=== PATIENT | female | born 1995 | race Hispanic/Latino ===

== ENCOUNTER 2019-08-25 21:42 | Emergency (ER) | payer SELFPAY ==
[2019-08-25] MEDS ORDERED: ACETAMINOPHEN 500 MG TAB ONE (22:22)
[2019-08-25] MEDS ORDERED: NA CHLORIDE 0.9% 1,000 ML ONE (22:22)
[2019-08-25] MEDS ORDERED: ONDANSETRON 4 MG/2 ML VIAL ONE (22:22)
[2019-08-25 22:58] LABS: Absolute Lymphocytes (CBC) 0.5 K/uL (0.7-4.9); Basophils % 0.1 % (0-1.3); Hematocrit 38.1 % (36.0-45.0); Lymphocytes % 7.1 % (15.3-44.8); MPV 11.5 fL (7.6-11.3); RBC Red Blood Cell Count 4.34 M/uL (3.86-4.86)
[2019-08-25 23:10] LABS: ALT/SGPT 16 U/L (12-78); AST/SGOT 13 U/L (15-37); Albumin 4.1 g/dL (3.4-5.0); Alkaline Phosphatase 65 U/L (45-117); BUN Blood Urea Nitrogen 16 mg/dL (7-18); Bicarbonate 29 mmol/L (21-32); Bilirubin Direct 0.2 mg/dL (0-0.2); Bilirubin Total 0.6 mg/dL (0.2-1.0); Glucose Level 99 mg/dL (74-106); Lipase 84 U/L (73-393); Potassium 3.3 mmol/L (3.5-5.1); Protein, Total 7.9 g/dL (6.4-8.2); Sodium Level 138 mmol/L (136-145)
[2019-08-25] MEDS ORDERED: MORPHINE 2 MG/ML SYR ONE (23:58)
[2019-08-26] MEDS ORDERED: NA CHLORIDE 0.9% 1,000 ML ONE (00:14)
[2019-08-26 00:50] LABS: Urine Bacteria >50 /HPF (<20); Urine Culture Reflex Order NOT NEEDED; Urine Mucus 1+ /HPF (NONE SEEN); Urine RBC <5 /HPF (NONE SEEN)
[2019-08-26 00:51] LABS: Urine Amorphous Sediment 1+ /HPF (NONE SEEN)
[2019-08-26 00:51] LABS: Urine Blood NEGATIVE (NEG); Urine Glucose NEGATIVE (NEG); Urine Protein NEGATIVE (NEG); Urine Specific Gravity 1.025 (1.005-1.030); Urine pH 8.5 (5.0-7.0)
[2019-08-26] MEDS ORDERED: DIPHENHYDRAMINE 50 MG/ML VIAL ONE (02:23)
[2019-08-26] MEDS ORDERED: METOCLOPRAMIDE 10 MG/2mL INJ ONE (02:23)
[2019-08-26] MEDS ORDERED: CEFTRIAXONE/SWI 1gm 1 GM/10 ML SYR ONE (02:23)
[2019-08-26 02:44] LABS: Blood Morphology Comment NOT SEEN (NOT SEEN); Platelet Estimate ADEQ
[2019-08-26 03:02] LABS: CSF Glucose 59 mg/dL (40-70)
--- NOTE | 2019-08-26 03:03 | ER ---
Nurse's Notes [facility] Name: Andree Santamaria Age: 24 yrs Sex: Female : 1995 Arrival Date: 08/25/2019 Time: 21:44 Bed 5 Private MD: Diagnosis: Headache;Urinary tract infection, site not specified Presentation: 08/25 21:54 Presenting complaint: Patient states: she started feeling sick today has headache, bb dizziness, photophobia, vomiting, chills, "pinching in her back". Transition of care: patient was not received from another setting of care. Onset of symptoms was August 25, 2019. Risk Assessment: Do you want to hurt yourself or someone else? Patient reports no desire to harm self or others. Initial Sepsis Screen: Does the patient meet any 2 criteria? No. Patient's initial sepsis screen is negative. Does the patient have a suspected source of infection? No. Patient's initial sepsis screen is negative. Care prior to arrival: None. 21:54 Method Of Arrival: Ambulatory bb 21:54 Acuity: MICHAELA 3 bb PROBATION AGENT: 21:56 LMP 08/25/2019 bb Historical: - Allergies: 21:56 No Known Allergies; bb - Home Meds: 21:56 None [Active]; bb - PMHx: 21:56 None; bb - PSHx: 21:56 None; bb - Immunization history:: Adult Immunizations up to date. - Coronavirus screen:: The patient has NOT traveled to [place] in the past 14 days. Proceed with normal triage process as indicated. - Social history:: Smoking status: Patient denies any tobacco usage or history of. - Ebola Screening: : No symptoms or risks identified at this time. Screenin:01 Abuse screen: Denies threats or abuse. Nutritional screening: No deficits noted. fu Tuberculosis screening: No symptoms or risk factors identified. Fall Risk None identified. Assessment: 22:55 General: Appears uncomfortable, Behavior is cooperative, appropriate for age, anxious, fu Reports fever for feeling ill for fatigue for 2-3 days. Pain: Complains of pain in head Pain does not radiate. Pain currently is 5 out of 10 on a pain scale. Quality of pain is described as pressure, Pain began 1600 today. Pain: Current management is with iuprofen taken at 1730. Neuro: Reports headache "pinching in the back", right leg pain. Cardiovascular: Denies chest pain, lightheadedness. Respiratory: Reports cough that is non-productive. GI: Reports nausea. EENT: Reports nasal congestion photophobia. 23:06 Reassessment: Patient appears in no apparent distress at this time. Patient and/or fu family updated on plan of care and expected duration. Pain level reassessed. Patient is alert, oriented x 3, equal unlabored respirations, skin warm/dry/pink. patient resting in bed. lights off. 08/26 00:40 Reassessment: pt to CT scan via wheelchair with cable television line technician. bb 02:15 Reassessment: Patient lying flat after lumbar puncture performed by DELILAH Odom; lp1 Complaint of nausea at this time. 03:47 Reassessment: PATIENT IS FOR DISCHARGE. EXPLAINED RESULTS OF DIAGNOSTICS. PATIENT AWARE rv OF THE PLAN OF CARE. CAREFULLY AND GRADUALLY PLACE THE PATIENT ON UPRIGHT POSITION AFTER THE SPINAL TAP PROCEDURE. DENIES ANY DIZZINESS AND HEADACHE. Vital Signs: 08/25 21:56 BP 150 / 78; Pulse 121; Resp 16 S; Temp 100.4(O); Pulse Ox 99% on R/A; Weight 74.39 kg bb (R); Height 5 ft. 0 in. (152.40 cm) (R); Pain 8/10; 22:31 BP 122 / 90; Pulse 108; Pulse Ox 100% on R/A; fu 23:00 BP 127 / 90; Pulse 99; Resp 20; Pulse Ox 100% on R/A; fu 08/26 00:01 BP 138 / 79; Pulse 101; Temp 100.3(O); Pulse Ox 99% ; Pain 9/10; fu 02:15 BP 111 / 60; Pulse 70; Resp 16; Pulse Ox 100% on R/A; lp1 03:54 BP 100 / 57; Pulse 75; Resp 15; Pulse Ox 100% on R/A; rv 08/25 21:56 Body Mass Index 32.03 (74.39 kg, 152.40 cm) bb ED Course: 08/25 21:44 Patient arrived in ED. ag3 21:45 Douglas Rojas PA is PHCP. cp 21:45 Ky Gordon MD is Attending Physician. cp 21:56 Triage completed. bb 21:56 Arm band placed on Patient placed in an exam room, on a stretcher, on pulse oximetry. bb Family accompanied patient. 22:11 Michael Garcias, RN is Primary Nurse. fu 22:30 Inserted saline lock: 22 gauge in right antecubital area, using aseptic technique. fu Blood collected. 22:37 Lactate Sent. fu 22:37 Procalcitonin Sent. fu 22:37 Creatinine for Radiology Sent. fu 22:37 Hepatic Function Sent. fu 22:37 Lipase Sent. fu 22:38 BMP Sent. fu 22:38 Strep Sent. fu 22:38 Influenza Screen (a \\T\\ B) Sent. fu 22:46 CBC with Diff Sent. jp3 23:02 Patient has correct armband on for positive identification. Bed in low position. Call fu light in reach. 08/26 00:12 Urine --Ancillary (enter results) Sent. fu 00:12 Urine Dipstick--Ancillary (enter results) Sent. fu 00:12 Urine Culture Sent. fu 00:12 Urine Microscopic Only Sent. fu 00:17 Report given to Yee DEWITT. fu 01:08 Consent for a lumbar puncture explained by physician, signed by patient. lp1 03:55 No provider procedures requiring assistance completed. IV discontinued, intact, rv bleeding controlled, No redness/swelling at site. Pressure dressing applied. Administered Medications: 08/25 22:30 Drug: NS 0.9% 1000 ml Route: IV; Rate: 1 bolus; Site: right antecubital; fu 23:30 Follow up: IV Status: Completed infusion; IV Intake: 1000ml bb 22:32 Drug: Zofran 4 mg Route: IVP; Site: right antecubital; fu 08/26 00:26 Follow up: Response: No adverse reaction 08/25 22:36 Drug: Tylenol 1000 mg Route: PO; fu 23:30 Follow up: Response: Temperature is decreased 08/26 00:00 Drug: morphine 2 mg Route: IVP; Site: right antecubital; fu 00:25 Follow up: Response: Pain is decreased 00:24 Drug: NS 0.9% (30 ml/kg) 30 ml/kg Route: IV; Rate: bolus; Site: right antecubital; bb 03:30 Follow up: IV Status: Completed infusion rv 03:30 Follow up: IV Intake: 2200ml rv 02:31 Drug: Benadryl 12.5 mg Route: IVP; Site: right antecubital; lp1 03:29 Follow up: Response: No adverse reaction rv 02:31 Drug: Reglan 10 mg Route: IVP; Site: right antecubital; lp1 03:29 Follow up: Response: Marked relief of symptoms; Nausea is decreased rv 03:28 Drug: Rocephin - (cefTRIAXone) 1 grams Route: IVPB; Infused Over: 30 mins; Site: right rv antecubital; 03:29 Follow up: IV Status: Completed infusion rv 03:46 Drug: Potassium Effervescent Tablet 25 mEq Route: PO; rv 03:48 Follow up: Response: Medication administered at discharge. rv Intake: 08/25 23:30 IV: 1000ml; Total: 1000ml. bb 08/26 03:30 IV: 2200ml; Total: 3200ml. rv Outcome: 03:01 Discharge ordered by MD. cp 03:55 Discharged to home ambulatory, with family. rv 03:55 Condition: good 03:55 Discharge instructions given to patient, family, Instructed on discharge instructions, follow up and referral plans. medication usage, Demonstrated understanding of instructions, follow-up care, medications, Prescriptions given X 2. 03:56 Patient left the ED. rv Signatures: Yee Galicia RN RN bb Bee Holly RN RN lp1 Douglas Rojas PA PA cp Michael Garcias, RN RENATE fu Sam Mary RN RN rv [place] jp3 Tess Lynch ag3 Corrections: (The following items were deleted from the chart) 08/25 23:21 23:15 BP 117 / 79; Pulse 105bpm; Resp 16bpm; Pulse Ox 100%; Temp 98.2F; Pain 0/10; fu fu
--- NOTE | 2019-08-26 03:03 | EDPHYS ---
Physician Documentation [facility] Name: Andree Santamaria Age: 24 yrs Sex: Female : 1995 Arrival Date: 08/25/2019 Time: 21:44 Bed 5 Private MD: ED Physician Ky Gordon HPI: 08/25 22:10 This 24 yrs old Female presents to ER via Ambulatory with complaints of Fever. cp 22:10 The patient reports fever, with an emergency department temperature of 100.4 degrees cp Fahrenheit. Onset: The symptoms/episode began/occurred today. Associated signs and symptoms: Pertinent positives: cough, headache, sinus congestion. 22:10 Severity of symptoms: in the emergency department the symptoms are unchanged despite cp home interventions. 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 - Coronavirus screen:: The patient has NOT traveled to [place] in the past 14 days. Proceed with normal triage process as indicated. - Social history:: Smoking status: Patient denies any tobacco usage or history of. - Ebola Screening: : No symptoms or risks identified at this time. ROS: 22:20 Constitutional: Positive for fever, Negative for poor PO intake. cp 22:20 Eyes: Positive for photophobia, Negative for discharge, redness. cp 22:20 ENT: Positive for sinus congestion, sore throat, Negative for drainage from ear(s), ear pain, difficulty swallowing, difficulty handling secretions. 22:20 Neck: Positive for pain with movement, tenderness. 22:20 Respiratory: Positive for cough, Negative for shortness of breath, wheezing. 22:20 Abdomen/GI: Positive for abdominal pain, nausea, vomiting, Negative for diarrhea, constipation. 22:20 Back: Positive for pain at rest, pain with movement, of the mid back area. 22:20 : Negative for urinary symptoms, vaginal bleeding, vaginal discharge. 22:20 Skin: Negative for rash. 22:20 Neuro: Positive for dizziness, headache, Negative for altered mental status. 22:20 All other systems are negative. Exam: 22:25 Constitutional: The patient appears in no acute distress, alert, awake, non-toxic, well cp developed, well nourished. 22:25 Head/Face: Normocephalic, atraumatic. cp 22:25 Eyes: Periorbital structures: appear normal, Pupils: equal, round, and reactive to light and accomodation, Extraocular movements: intact throughout, Conjunctiva: normal, no exudate, no injection, Sclera: no appreciated abnormality, Lids and lashes: appear normal, bilaterally. 22:25 ENT: External ear(s): are unremarkable, Ear canal(s): are normal, clear, TM's: bulging, is not appreciated, bilaterally, dullness, bilaterally, erythema, is not appreciated, bilaterally, Nose: is normal, Mouth: Lips: moist, Oral mucosa: pink and intact, moist, Posterior pharynx: is normal, airway is patent, no erythema, no exudate. 22:25 Neck: ROM/movement: pain, that is mild, with any movement, limited range of motion, is not appreciated, nuchal rigidity, is not appreciated, Lymph nodes: no appreciated lymphadenopathy. 22:25 Chest/axilla: Inspection: normal, Palpation: is normal, no crepitus, no tenderness. 22:25 Cardiovascular: Rate: tachycardic, Rhythm: regular. 22:25 Respiratory: the patient does not display signs of respiratory distress, Respirations: normal, no use of accessory muscles, no retractions, labored breathing, is not present, Breath sounds: are clear throughout, no decreased breath sounds, no stridor, no wheezing. 22:25 Abdomen/GI: Inspection: abdomen appears normal, Bowel sounds: active, all quadrants, Palpation: soft, in all quadrants, mild abdominal tenderness, in the right lower quadrant, rebound tenderness, is not appreciated, voluntary guarding, is not appreciated, involuntary guarding, is not appreciated. 22:25 Back: CVA tenderness, is noted on the right. 22:25 Skin: cellulitis, is not appreciated, no rash present. 22:25 Neuro: Orientation: to person, place \T\ time. Mentation: is normal, Cerebellar function: is grossly normal, Motor: moves all fours, strength is normal, Sensation: is normal. Vital Signs: 21:56 BP 150 / 78; Pulse 121; Resp 16 S; Temp 100.4(O); Pulse Ox 99% on R/A; Weight 74.39 kg bb (R); Height 5 ft. 0 in. (152.40 cm) (R); Pain 8/10; 22:31 BP 122 / 90; Pulse 108; Pulse Ox 100% on R/A; fu 23:00 BP 127 / 90; Pulse 99; Resp 20; Pulse Ox 100% on R/A; fu 08/26 00:01 BP 138 / 79; Pulse 101; Temp 100.3(O); Pulse Ox 99% ; Pain 9/10; fu 02:15 BP 111 / 60; Pulse 70; Resp 16; Pulse Ox 100% on R/A; lp1 03:54 BP 100 / 57; Pulse 75; Resp 15; Pulse Ox 100% on R/A; rv 08/25 21:56 Body Mass Index 32.03 (74.39 kg, 152.40 cm) bb MDM: 08/25 22:01 Patient medically screened. cp 23:00 Differential diagnosis: URI, bronchitis, pneumonia UTI, gastroenteritis, meningitis, cp sepsis. 08/26 00:16 Test interpretation: by ED physician or midlevel provider: plain radiologic studies, cp chest xray negative for infiltrates. 03:00 Data reviewed: vital signs, nurses notes, lab test result(s), radiologic studies, CT cp scan, plain films, I have discussed the patient's presentation/case with the attending Emergency Department Physician;. 08/25 22:08 Order name: CBC with Diff cp 08/25 22:08 Order name: BMP cp 08/25 22:08 Order name: Creatinine for Radiology cp 08/25 22:08 Order name: Hepatic Function cp 08/25 22:08 Order name: Lipase cp 08/25 22:08 Order name: Influenza Screen (a \T\ B) cp 08/25 22:08 Order name: Strep cp 08/25 22:08 Order name: Procalcitonin cp 08/25 22:08 Order name: Lactate cp 08/25 23:03 Order name: CBC with Automated Diff; Complete Time: 02:52 EDMS 08/25 23:12 Interpretation: Normal except: MPV 11.5; USAMA% 88.6; LYM% 7.1; LYMA 0.5. cp 08/25 23:13 Order name: Basic Metabolic Panel; Complete Time: 23:36 EDMS 08/25 23:36 Interpretation: Normal except: K 3.3. cp 08/25 23:13 Order name: Liver (Hepatic) Function; Complete Time: 23:36 EDMS 08/25 23:13 Order name: Lipase; Complete Time: 23:36 EDMS 08/25 23:13 Order name: Creatinine (Radiology Only); Complete Time: 23:36 EDMS 08/25 23:14 Order name: Group A Streptococcus Rapid Sc; Complete Time: 23:36 EDMS 08/25 23:16 Order name: Influenza Screen (A ; Complete Time: 23:36 EDMS 08/25 23:32 Order name: Lactate; Complete Time: 23:36 EDMS 08/25 23:36 Interpretation: Abnormal: LAC 2.1. 08/25 23:55 Order name: Urine Microscopic Only 08/25 23:55 Order name: Urine Culture 08/25 23:55 Order name: Urine Dipstick--Ancillary (enter results) [facility] 08/25 23:55 Order name: Urine --Ancillary (enter results) [facility] 08/26 00:42 Order name: Procalcitonin; Complete Time: 00:57 EDMS 08/26 00:57 Interpretation: Reviewed. 08/26 00:51 Order name: Urine Microscopic Only; Complete Time: 00:57 EDMS 08/26 00:57 Interpretation: Normal except: UWBC 20-50; UBACT >50; SQEPI 10-20. 08/26 00:51 Order name: Urine --Ancillary; Complete Time: 00:57 EDMS 08/26 00:51 Order name: Urine Dipstick-Ancillary; Complete Time: 00:57 EDMS 08/26 00:58 Order name: Spinal Fluid Profile 08/26 02:45 Order name: Manual Differential; Complete Time: 02:52 EDMS 08/26 02:52 Interpretation: Normal except: SEGS 83; LYM 10. 08/26 02:54 Order name: Lactate Sepsis 2 HR Follow-up; Complete Time: 02:59 EDMS 08/26 02:59 Interpretation: Reviewed. 08/26 03:03 Order name: CSF Glucose; Complete Time: 03:37 EDMS 08/25 22:08 Order name: IV Saline Lock; Complete Time: 22:37 08/25 22:08 Order name: Labs collected and sent; Complete Time: 22:38 cp 08/25 22:08 Order name: Urine Dipstick-Ancillary (obtain specimen); Complete Time: 00:26 cp 08/25 22:08 Order name: Urine Test (obtain specimen); Complete Time: 00:26 cp 08/25 23:42 Order name: XRAY Chest (1 view) 08/26 00:12 Order name: CT Head Brain wo Cont cp 08/26 00:36 Order name: CT Stone Protocol 08/26 00:58 Order name: Lumbar Puncture Consent; Complete Time: 01:08 cp 08/26 00:58 Order name: Lumbar Puncture Setup; Complete Time: 01:08 cp Administered Medications: 08/25 22:30 Drug: NS 0.9% 1000 ml Route: IV; Rate: 1 bolus; Site: right antecubital; fu 23:30 Follow up: IV Status: Completed infusion; IV Intake: 1000ml 22:32 Drug: Zofran 4 mg Route: IVP; Site: right antecubital; fu 08/26 00:26 Follow up: Response: No adverse reaction 08/25 22:36 Drug: Tylenol 1000 mg Route: PO; fu 23:30 Follow up: Response: Temperature is decreased 08/26 00:00 Drug: morphine 2 mg Route: IVP; Site: right antecubital; fu 00:25 Follow up: Response: Pain is decreased bb 00:24 Drug: NS 0.9% (30 ml/kg) 30 ml/kg Route: IV; Rate: bolus; Site: right antecubital; bb 03:30 Follow up: IV Status: Completed infusion rv 03:30 Follow up: IV Intake: 2200ml rv 02:31 Drug: Benadryl 12.5 mg Route: IVP; Site: right antecubital; lp1 03:29 Follow up: Response: No adverse reaction rv 02:31 Drug: Reglan 10 mg Route: IVP; Site: right antecubital; lp1 03:29 Follow up: Response: Marked relief of symptoms; Nausea is decreased rv 03:28 Drug: Rocephin - (cefTRIAXone) 1 grams Route: IVPB; Infused Over: 30 mins; Site: right rv antecubital; 03:29 Follow up: IV Status: Completed infusion rv 03:46 Drug: Potassium Effervescent Tablet 25 mEq Route: PO; rv 03:48 Follow up: Response: Medication administered at discharge. rv Disposition: 03:00 Chart complete. cp 04:44 Co-signature as Attending Physician, Ky Gordon MD. rn Disposition: 08/26/19 03:01 Discharged to Home. Impression: Headache, Urinary tract infection, site not specified. - Condition is Stable. - Discharge Instructions: General Headache Without Cause, Urinary Tract Infection, Adult. - Prescriptions for Zofran 4 mg Oral Tablet - take 1 tablet by ORAL route every 12 hours As needed; 20 tablet. Bactrim DS 800- 160 mg Oral Tablet - take 1 tablet by ORAL route every 12 hours for 7 days; 14 tablet. - Medication Reconciliation Form, Thank You Letter, Antibiotic Education, Prescription Opioid Use, Work release form form. - Follow up: Private Physician; When: 2 - 3 days; Reason: Recheck today's complaints. - Problem is new. - Symptoms have improved. Signatures: Dispatcher [employer] EDMS Yee Galicia RN Ky Garland MD MD rn Pena, Laura RN RN lp1 Douglas Rojas PA PA cp Michael Garcias, RN RENATE fu Sam Mary RN RENATE rv Corrections: (The following items were deleted from the chart) 08/25 22:47 22:09 UA MICROSCOPIC+U.LAB.BRZ ordered. EDMS EDMS 23:12 23:12 Normal except: MPV 11.5; USAMA% 88.6; LYM% 7.1. cp 08/26 03:56 03:01 08/26/2019 03:01 Discharged to Home. Impression: Headache; Urinary tract rv infection, site not specified. Condition is Stable. Forms are Medication Reconciliation Form, Thank You Letter, Antibiotic Education, Prescription Opioid Use. Follow up: Private Physician; When: 2 - 3 days; Reason: Recheck today's complaints. Problem is new. Symptoms have improved. cp
[2019-08-26 03:04] LABS: Fluid Total Volume 5.6 ml
[2019-08-26 03:05] LABS: Appearance CLEAR (CLEAR); Body Fluid Source CSF; Color of fluid Colorless (COLORLESS)
[2019-08-26 03:11] LABS: Body Fluid WBC 1 /mm^3
[2019-08-26] MEDS ORDERED: POTASSIUM 25 MEQ EFFERV TAB ONE (03:41)
--- NOTE | 2019-08-26 08:20 | RAD REPORT ---
EXAM DESCRIPTION: RAD - Chest Single View - 08/26/2019 12:01 am CLINICAL HISTORY: COUGH COMPARISON: No comparisons TECHNIQUE: AP portable chest image was obtained 08/26/2019 12:01 am . FINDINGS: Lungs are clear. Heart and vasculature are normal. No measurable pleural effusion and no p neumothorax. No acute bony abnormality seen. No acute aortic findings suspected. IMPRESSION: No acute cardiopulmonary process.
--- NOTE | 2019-08-26 08:52 | RAD REPORT ---
EXAM DESCRIPTION: CT - Stone Protocol - 08/26/2019 1:49 am CLINICAL HISTORY: The patient is 24 years old and is Female; FLANK PAIN TECHNIQUE: Axial computed tomography images of the abdomen and pelvis without intravenous contrast. Sagittal and coronal reformatted images were created and reviewed. This CT exam was performed usi ng one or more of the following dose reduction techniques: automated exposure control, adjustment o f the mA and/or kV according to patient size, and/or use of iterative reconstruction technique. COMPARISON: No relevant prior studies available. FINDINGS: ARTIFACTS: The exam is suboptimal secondary to motion artifact. LUNG BASES: Unremarkable. No mass. No consolidation. ABDOMEN: LIVER: Homogeneous without focal mass. GALLBLADDER AND BILE DUCTS: No calcified stones. No ductal dilation. PANCREAS: Unremarkable. No ductal dilation. SPLEEN: Unremarkable. ADRENALS: Unremarkable. No mass. KIDNEYS AND URETERS: No obstructing stones. No hydronephrosis. No perinephric fluid. STOMACH AND BOWEL: The stomach is distended with food contents. The small bowel is relatively no rmal in caliber. A moderate amount of stool is present throughout colon. There is no mucosal thickeni ng or evidence of bowel obstruction. PELVIS: APPENDIX: The appendix is normal in caliber without surrounding inflammation. BLADDER: Unremarkable. No stones. REPRODUCTIVE: Unremarkable as visualized. ABDOMEN and PELVIS: INTRAPERITONEAL SPACE: Unremarkable. No free air. No significant fluid collection. BONES/JOINTS: No acute fracture. SOFT TISSUES: The soft tissues are normal. VASCULATURE: Unremarkable. No abdominal aortic aneurysm. LYMPH NODES: Unremarkable. No enlarged lymph nodes. IMPRESSION: No acute findings on this noncontrasted CT of the abdomen and pelvis to explain the lee ent's symptoms. 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 The interpreting radiologist is benny hernandez responsible for the content of the report.
--- NOTE | 2019-08-26 08:53 | RAD REPORT ---
EXAM DESCRIPTION: CT - Head Brain Wo Cont - 08/26/2019 1:48 am CLINICAL HISTORY: Headache; Fever. COMPARISON: None. TECHNIQUE: CT scan of the brain without IV contrast. This exam was performed according to our depa rtmental dose-optimization program, which includes automated exposure control, adjustment of the mA a nd/or kV according to patient size and/or use of iterative reconstruction technique. FINDINGS: The ventricles, cisterns, and sulci are age-appropriate. No evidence of acute infarction, intracranial hemorrhage, extra-axial fluid collection, or midline shift. No air-fluid levels are seen in the paranasal sinuses to suggest acute sinusitis. No depressed skull fracture. IMPRESSION: No acute intracranial findings. Electronically signed by: Carlitos Hernandez MD 08/26/2019 1:26 AM FULL TIME Due to temporary technical issues with the PACS/Fluency reporting system, reports are being signed by the in house radiologist as a courtesy to ensure prompt reporting. The interpreting radiologist is f ully responsible for the content of the report.
[2019-08-26 17:33] VITALS: TEMP 100.3
[2019-08-26 17:34] VITALS: O2SAT 100
[2019-08-26 17:35] VITALS: BP 100/57
== END 2019-08-26 03:56 | disposition home or self-care (01) ==
LOC: ER 21:42
DX: N39.0 Urinary tract infection, site not specified (principal); R51 Headache
CPT/HCPCS: 36415; 70450; 71045; 74176; 76377; 80048; 80076; 81003; 81015; 81025; 82945; 83605; 83690; 84145; 84157; 85025; 87070; 87081; 87086; 87088; 87804; 89050; 96361; 96365; 96366; 96375; 99284; J0696; J1200; J2270; J2405; J2765; J7030

== ENCOUNTER 2019-08-27 02:12 | Emergency (ER) | payer SELFPAY ==
--- NOTE | 2019-08-27 03:44 | EDPHYS ---
Physician Documentation [facility] Name: Andree Santamaria Age: 24 yrs Sex: Female : 1995 Arrival Date: 08/27/2019 Time: 02:15 Bed 14 Private MD: ED Physician Anthony Sanderson HPI: 08/27 04:13 This 24 yrs old Female presents to ER via Ambulatory with complaints of back kdr pain form spinal tap. 04:13 The patient presents with pain that is acute, with no known mechanism of injury. The kdr symptoms are located in the T5, T6 and T7. Onset: The symptoms/episode began/occurred today. The pain does not radiate. Associated signs and symptoms: Pertinent positives: fever, weakness, Pertinent negatives: constipation, incontinence, nausea, numbness, tingling, urinary retention. The problem was sustained The patient had a lumbar puncture yesterday and now presents with upper back pain. She states that the TIERNEY and back pain form last night have improved but now she has upper back pain. She has no other associated s/s at this time.. Modifying factors: The patient symptoms are alleviated by nothing, Can't get comfortable, the patient symptoms are aggravated by any movement. Severity of symptoms: At their worst the symptoms were mild, moderate, just prior to arrival, in the emergency department the symptoms are unchanged. The patient has not experienced similar symptoms in the past. The patient has been recently seen by a physician: The patient has been recently seen at the [facility] Emergency Department, yesterday. 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 - Coronavirus screen:: The patient has NOT traveled to [place] in the past 14 days. Proceed with normal triage process as indicated. - Social history:: Smoking status: Patient denies any tobacco usage or history of. - Ebola Screening: : No symptoms or risks identified at this time. ROS: 04:13 Constitutional: Negative for fever, chills, and weight loss, Eyes: Negative for injury, kdr pain, redness, and discharge, ENT: Negative for injury, pain, and discharge, Neck: Negative for injury, pain, and swelling, Cardiovascular: Negative for chest pain, palpitations, and edema, Respiratory: Negative for shortness of breath, cough, wheezing, and pleuritic chest pain, Abdomen/GI: Negative for abdominal pain, nausea, vomiting, diarrhea, and constipation, : Negative for injury, bleeding, discharge, and swelling, MS/Extremity: Negative for injury and deformity, Skin: Negative for injury, rash, and discoloration, Psych: Negative for depression, anxiety, suicide ideation, homicidal ideation, and hallucinations, Allergy/Immunology: Negative for hives, rash, and allergies, Endocrine: Negative for neck swelling, polydipsia, polyuria, polyphagia, and marked weight changes, Hematologic/Lymphatic: Negative for swollen nodes, abnormal bleeding, and unusual bruising. 04:13 Back: Positive for pain at rest, pain with movement, of the thoracic area. Exam: 04:22 Constitutional: This is a well developed, well nourished patient who is awake, alert, kdr and in no acute distress. Head/Face: Normocephalic, atraumatic. Eyes: Pupils equal round and reactive to light, extra-ocular motions intact. Lids and lashes normal. Conjunctiva and sclera are non-icteric and not injected. Cornea within normal limits. Periorbital areas with no swelling, redness, or edema. Neck: Trachea midline, no thyromegaly or masses palpated, and no cervical lymphadenopathy. Supple, full range of motion without nuchal rigidity, or vertebral point tenderness. No Meningismus. Chest/axilla: Normal chest wall appearance and motion. Nontender with no deformity. No lesions are appreciated. Cardiovascular: Regular rate and rhythm with a normal S1 and S2. No gallops, murmurs, or rubs. Normal PMI, no JVD. No pulse deficits. Respiratory: Lungs have equal breath sounds bilaterally, clear to auscultation and percussion. No rales, rhonchi or wheezes noted. No increased work of breathing, no retractions or nasal flaring. Abdomen/GI: Soft, non-tender, with normal bowel sounds. No distension or tympany. No guarding or rebound. No evidence of tenderness throughout. Skin: Warm, dry with normal turgor. Normal color with no rashes, no lesions, and no evidence of cellulitis. MS/ Extremity: Pulses equal, no cyanosis. Neurovascular intact. Full, normal range of motion. Neuro: Awake and alert, GCS 15, oriented to person, place, time, and situation. Cranial nerves II-XII grossly intact. Motor strength 5/5 in all extremities. Sensory grossly intact. Cerebellar exam normal. Normal gait. Psych: Awake, alert, with orientation to person, place and time. Behavior, mood, and affect are within normal limits. 04:22 Back: pain, that is mild, that is moderate, of the thoracic area, ROM is painful, with all movement, normal spinal alignment noted, CVA tenderness, is absent, Straight leg raises: right lower extremity illicits pain, at 30 degrees, left lower extremity illicits pain, at 60 degrees. Vital Signs: 02:43 BP 153 / 96; Pulse 66; Resp 16 S; Temp 97.7(O); Pulse Ox 100% on R/A; Weight 74.39 kg bb (R); Height 5 ft. 0 in. (152.40 cm) (R); Pain 10/10; 02:43 Body Mass Index 32.03 (74.39 kg, 152.40 cm) bb MDM: 02:48 Data reviewed: vital signs, nurses notes. ED course: D/w Dr. Uriostegui - will see for kdr possible blood patch. 03:43 Patient medically screened. kdr 04:22 ED course: The patient was seen and evaluated by Dr. Uriostegui for possible blood patch. kdr However, when he examined the patient, her back pain complaint was now down in her lower back and lateral to her spine. She denied any TIERNEY or nuchal rigidity to Dr. Uriostegui - nor did she have meningismus on my exam either. 04:26 ED course: After Dr. Uriostegui evaluated the patient, she had sudden improvement of her kdr s/s and asked to be discharged. The patient was discharged to home in stable condition and without any s/s of acute illness or life/limb threat. Administered Medications: 03:43 Not Given (Patient Refused): TORadol - Ketorolac 15 mg IVP once bb Disposition: 08/27/19 03:43 Discharged to Home. Impression: Low back pain. - Condition is Stable. - Discharge Instructions: Musculoskeletal Pain, Back Pain, Adult, [id number]. - Prescriptions for Tramadol 50 mg Oral Tablet - take 1 tablet by ORAL route every 8 hours as needed; 12 tablet. Medrol (Jake) 4 mg Oral Tablets, Dose Pack - take 1 tablet by ORAL route as directed - follow package instructions; 1 packet. - Medication Reconciliation Form, Thank You Letter, Prescription Opioid Use form. - Follow up: Private Physician; When: 2 - 3 days; Reason: If symptoms return, Further diagnostic work-up, Recheck today's complaints, Continuance of care, Re-evaluation by your physician. - Problem is new. - Symptoms have improved. Signatures: Anthony Sanderson MD MD kdr Yee Galicia RN RN bb Corrections: (The following items were deleted from the chart) 03:51 03:43 08/27/2019 03:43 Discharged to Home. Impression: Low back pain. Condition is bb Stable. Forms are Medication Reconciliation Form, Thank You Letter, Antibiotic Education, Prescription Opioid Use. Follow up: Private Physician; When: 2 - 3 days; Reason: If symptoms return, Further diagnostic work-up, Recheck today's complaints, Continuance of care, Re-evaluation by your physician. Problem is new. Symptoms have improved. kdr
--- NOTE | 2019-08-27 03:44 | ER ---
Nurse's Notes [facility] Name: Andree Santamaria Age: 24 yrs Sex: Female : 1995 Arrival Date: 08/27/2019 Time: :15 Bed 14 Private MD: Diagnosis: Low back pain Presentation: 08/27 02:41 Presenting complaint: Patient states: c/o back pain after spinal tap last night to rule bb out meningitis. Transition of care: patient was not received from another setting of care. Onset of symptoms was August 26, 2019. Risk Assessment: Do you want to hurt yourself or someone else? Patient reports no desire to harm self or others. Initial Sepsis Screen: Does the patient meet any 2 criteria? No. Patient's initial sepsis screen is negative. Does the patient have a suspected source of infection? No. Patient's initial sepsis screen is negative. Care prior to arrival: None. 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 - Coronavirus screen:: The patient has NOT traveled to [place] in the past 14 days. Proceed with normal triage process as indicated. - Social history:: Smoking status: Patient denies any tobacco usage or history of. - Ebola Screening: : No symptoms or risks identified at this time. Screenin:44 Abuse screen: Denies threats or abuse. Nutritional screening: No deficits noted. bb Tuberculosis screening: No symptoms or risk factors identified. Fall Risk None identified. Assessment: 02:44 General: Appears in no apparent distress. uncomfortable, Behavior is calm, cooperative. bb Pain: Complains of pain in back Pain currently is 10 out of 10 on a pain scale. Neuro: Level of Consciousness is awake, alert, obeys commands, Oriented to person, place, time, situation. Cardiovascular: No deficits noted. Respiratory: Respiratory effort is even, unlabored, Respiratory pattern is regular, Breath sounds are clear bilaterally. GI: No deficits noted. No signs and/or symptoms were reported involving the gastrointestinal system. Derm: Skin is pink, warm \T\ dry. Musculoskeletal: Circulation, motion, and sensation intact. Reports pain in back. 03:28 Reassessment: Patient is alert, oriented x 3, equal unlabored respirations, skin bb warm/dry/pink. Dr Uriostegui at bedside for discussion of blood patch for spinal headache after spinal tap. After lengthy discussion pt choose to refuse treatment and wants to be discharged. 03:48 Reassessment: Patient is alert, oriented x 3, equal unlabored respirations, skin bb warm/dry/pink. Toradol 15 mg ordered but pt refused. Pt verbalized understanding of and agrees to plan of care discharge instructions given pt ambulated with steady gait to exit. Vital Signs: 02:43 BP 153 / 96; Pulse 66; Resp 16 S; Temp 97.7(O); Pulse Ox 100% on R/A; Weight 74.39 kg bb (R); Height 5 ft. 0 in. (152.40 cm) (R); Pain 10/10; 02:43 Body Mass Index 32.03 (74.39 kg, 152.40 cm) bb ED Course: 02:15 Patient arrived in ED. es 02:25 Anthony Sanderson MD is Attending Physician. kdr 02:41 Yee Galicia RN is Primary Nurse. bb 02:42 Triage completed. bb 02:43 Arm band placed on Patient placed in an exam room, on a stretcher, on pulse oximetry. bb 02:44 Patient has correct armband on for positive identification. Placed in gown. Bed in low bb position. Call light in reach. Side rails up X 1. Pulse ox on. NIBP on. 02:50 Inserted saline lock: 20 gauge in right antecubital area, using aseptic technique. ds4 Blood collected. 03:42 IV discontinued, intact, bleeding controlled, No redness/swelling at site. Pressure ds4 dressing applied. 03:50 No provider procedures requiring assistance completed. bb 03:50 IV d/c by radio frequency technician. bb Administered Medications: 03:43 Not Given (Patient Refused): TORadol - Ketorolac 15 mg IVP once bb Outcome: 03:43 Discharge ordered by . kdr 03:51 Discharged to home ambulatory. bb 03:51 Condition: stable 03:51 Discharge instructions given to patient, Instructed on discharge instructions, follow up and referral plans. medication usage, Demonstrated understanding of instructions, follow-up care, medications, Prescriptions given X 2. 03:51 Patient left the ED. bb Signatures: Anthony Sanderson MD MD kdr Salyer, Edna es Ballard, Brenda, RN RN bb Carlo Chappell ds4
[2019-08-27 04:00] VITALS: BP 153/96; TEMP 97.7; O2SAT 100
== END 2019-08-27 03:51 | disposition home or self-care (01) ==
LOC: ER 02:12
DX: M54.5 Low back pain (principal); Z98.890 Other specified postprocedural states
CPT/HCPCS: 99284